=== PATIENT | male | born 1975 | race Caucasian/White ===

== ENCOUNTER 2016-12-26 12:50 | Emergency (ER) | payer SELFPAY ==
[2016-12-26 12:15] LABS: BASOPHILS 0.3 %; BASOPHILS ABSOLUTE 0.03 10/3/uL (0.0-0.16); EOSINOPHILS 0.9 %; ER CBC TAT 0 Hrs 02 Mins; HEMATOCRIT 48.5 % (40.0-51.0); HEMOGLOBIN 16.6 g/dL (13.6-17.8); IMMATURE GRANULOCYTES 0.5 %; IMMATURE GRANULOCYTES ABSOLUTE 0.06 10/3/uL (0.0-0.11); LYMPHOCYTES 28.4 %; MEAN CORPUS HGB CONC 34.2 g/dL (32.0-36.0); MEAN CORPUSCULAR HEMOGLOB 30.7 pg (26.0-34.0); MEAN CORPUSCULAR VOLUME 89.6 fL (80-100); MEAN PLATELET VOLUME 9.2 fL (9.2-13.0); MONOCYTES 8.9 %; MONOCYTES ABSOLUTE 0.97 10/3/uL (0.21-1.20); NEUTROPHILS ABSOLUTE 6.67 10/3/uL (2.02-8.40); PLATELET COUNT 229 10/3/uL (150-400); RBC DISTRIBUTION WIDTH 12.8 % (12.0-16.0); RED CELL COUNT 5.41 10/6/uL (4.7-6.1); WHITE BLOOD CELLS 10.9 10/3/uL (4.5-10.5)
[2016-12-26 12:17] LABS: MANUAL DIFF NO %
[2016-12-26 12:32] LABS: BUN (BLOOD UREA NITROGEN) 12 MG/DL (6-23); CALCIUM, SERUM 8.5 MG/DL (8.5-10.4); CHLORIDE, SERUM 102 MMOL/L (96-112); CO2 (CARBON DIOXIDE) 28 MMOL/L (24-34); CREATININE 0.89 MG/DL (0.70-1.30); GFR AFRICAN AMERICAN 125 ML/MIN (>=60); GFR NON AFRICAN AMERICAN 108 ML/MIN (>=60); GLUCOSE, SERUM 102 MG/DL (60-99); POTASSIUM, SERUM 3.6 MMOL/L (3.5-5.3); SODIUM, SERUM 139 MMOL/L (135-148); TROPONIN I <0.02 NG/ML (<0.05)
[2016-12-26 13:29] LABS: ASCORBIC ACID (UR NOT ORDER) NEG (NEG); BILIRUBIN, URINE NEGATIVE (NEG); ER URINALYSIS TAT 0 Hrs 00 Mins; KETONE, URINE NEGATIVE (NEG); LEUKOCYTE ESTERASE(NOT OR NEG (NEG); NITRITE (URINE) NEG (NEG); WBC (NOT ORDERED) (RFLEX) < 1 (0-5)
[2016-12-26 13:52] LABS: AMPHETAMINES (NOT ORD) NEG (NEG); BARBITURATES (NOT ORDERED NEG (NEG); BENZODIAZEPINES (NOT ORD) NEG (NEG); CANNABINOIDS (THC) NEG (NEG); COCAINE (NOT ORDERED) NEG (NEG); OPIATES POS (NEG); PHENCYCLIDINE(PCP) NEG (NEG); TRICYCLICS NEG (NEG)
== END 2016-12-26 15:41 | disposition home or self-care (01) ==
LOC: ER 12:50
PROVIDERS: Emergency Medicine
DX: I10 Essential (primary) hypertension (principal); F17.200 Nicotine dependence, unspecified, uncomplicated
CPT/HCPCS: 70450; 71010; 80048; 80305; 81001; 84484; 85025; 93005; 96374; 99285; A9270-GY; J0360

== ENCOUNTER 2017-03-27 17:23 | Emergency (ER) | payer SELFPAY ==
[2017-03-27 17:25] LABS: A/G RATIO 1.1 (0.7-1.9); ALKALINE PHOSPHATASE 83 U/L (45-117); BUN (BLOOD UREA NITROGEN) 11 MG/DL (6-23); CALCIUM, SERUM 9.1 MG/DL (8.5-10.4); CHLORIDE, SERUM 105 MMOL/L (96-112); CO2 (CARBON DIOXIDE) 29 MMOL/L (24-34); CREATININE 0.96 MG/DL (0.70-1.30); GFR AFRICAN AMERICAN 115 ML/MIN (>=60); GFR NON AFRICAN AMERICAN 99 ML/MIN (>=60); GLOBULIN 3.7 G/DL (2.5-4.1); POTASSIUM, SERUM 4.1 MMOL/L (3.5-5.3); SGPT(ALT) 76 U/L (5-65); SODIUM, SERUM 138 MMOL/L (135-148); TOTAL BILIRUBIN 0.5 MG/DL (0-1.2); TOTAL PROTEIN 7.7 G/DL (6.0-8.5)
[2017-03-27 17:27] LABS: GLUCOSE, SERUM 81 MG/DL (60-99); SGOT(AST) 55 U/L (5-40)
== END 2017-03-27 18:30 | disposition home or self-care (01) ==
LOC: ER 17:23
PROVIDERS: Physician Assistant
PROC: 2W3DX1Z Immobilization of Left Lower Arm using Splint (ICD-10-PCS; principal; 2017-03-27)
PROC: 2W3CX1Z Immobilization of Right Lower Arm using Splint (ICD-10-PCS; 2017-03-27)
DX: G56.03 Carpal tunnel syndrome, bilateral upper limbs (principal); I10 Essential (primary) hypertension
CPT/HCPCS: 80053; 93005; 99284; A9270-GY